=== PATIENT | male | born 1930 | race Caucasian/White ===

== ENCOUNTER 2017-02-18 08:51 | Day surgery (SDC) | payer OTHER, MEDICARE ==
[2017-02-16 10:32] VITALS: BMI 25.0
[2017-02-18] MEDS ORDERED: MIDAZOLAM HCL 2 MG/2 ML SINGLE DOSE VIAL ONE (10:12)
[2017-02-18 10:21] VITALS: TEMP 97.6
[2017-02-18] MEDS: CYCLOPENTOLATE 2% OPHTH SOLN 2 ML BOTTLE ONE ×3 (10:30→10:40)
[2017-02-18] MEDS: PHENYLEPHRINE 2.5% OPHTH SOLN 15 ML BOTTLE ONE ×3 (10:30→10:40)
[2017-02-18] MEDS: TROPICAMIDE 1% OPHTH SOLN 15 ML BOTTLE ONE ×3 (10:30→10:40)
[2017-02-18] MEDS: CIPROFLOXACIN 0.3% EYE DROPS 5 ML BOTTLE ONE ×3 (10:30→10:40)
[2017-02-18 12:15] VITALS: BP 144/72; PULSE 47
--- NOTE | 2017-02-18 12:31 | OP ---
DATE OF OPERATION: 02/18/2017 OPERATIVE PROCEDURE: Lens Phacoemulsification with Posterior Chamber Intraocular Lens Placement Left Eye PREOPERATIVE DIAGNOSIS: Visually Significant Cataract of Left Eye POSTOPERATIVE DIAGNOSIS: Visually Significant Cataract of Left Eye SURGEON: Kush Sierra M.D. ANESTHESIA: MAC ANESTHESIOLOGIST: PROCEDURE: The patient was brought to the operating room and placed under monitored anesthesia care by Anesthesia. A drop of Tetracaine was then placed over the left eye. The patient was then prepped and draped in the usual sterile manner. A speculum was then placed over the left eye. The eye was then well irrigated with copious amounts of BSS (balanced salt solution). The operating microscope was then moved into position. A paracentesis was performed using a 15 degree blade. At this point 0.5 mL of 1% preservative-free lidocaine was injected into the anterior chamber. Amvisc plus was then injected into the anterior chamber. A clear corneal incision was then formed using a 2.2 mm keratome. A capsulorrhexis was then performed in a continuous circular fashion beginning with a cystotome, completed with an Utratas forceps. Hydrodissection was then performed using BSS on a cannula. The phaco probe was then introduced through the corneal wound and the cataract was removed using the phaco chop technique. Approximately 3 seconds of absolute phaco time was used. The remaining cortex was then removed using irrigation and aspiration with an I/A probe. The capsule was then filled with regular Amvisc and the capsule was noted to be intact. A previously selected foldable posterior chamber intraocular lens was then injected into the capsule through the corneal wound using a lens injector. It was then dialed into position using a Sinskey hook. The Amvisc was then removed using irrigation and aspiration. Miostat was then injected through the paracentesis to constrict the pupil. The paracentesis and corneal wound were then hydrated and noted to be water tight. A drop of Maxitrol was then placed over the eye. The speculum was removed and clear shield was taped over the eye. The patient tolerated the procedure well and there were no surgical complications. The patient was asked to follow up in my office the next day. KUSH SIERRA M.D. STEPHIE/[id number]
== END 2017-02-18 12:25 | disposition home or self-care (01) ==
LOC: FASU 08:51
PROVIDERS: ATTEND Ophthalmology
PROC: 08RK3JZ Replacement of Left Lens with Synthetic Substitute, Percutaneous Approach (ICD-10-PCS; principal; 2017-02-18 11:13)
DX: H26.8 Other specified cataract (principal)

== ENCOUNTER 2019-02-20 09:28 | Emergency (ER) | payer OTHER, MEDICARE ==
[2019-02-20] MEDS ORDERED: SODIUM CHLORIDE 1,000 ML IV SCH (09:45)
[2019-02-20 09:49] VITALS: BMI 26.6
[2019-02-20 10:22] LABS: BASO % 0.8 % (0-2.0); EOS % 5.2 % (0-4.5); HEMATOCRIT 44.5 % (35.4-49); HEMOGLOBIN 14.8 GM/dl (11.7-16.9); LYMPH % 16.5 % (8-40); MCH 31.8 pg (25.7-33.7); MCHC 33.2 g/dl (32.0-35.9); MEAN CELL VOLUME 95.6 fl (80-96); MEAN PLT VOLUME 8.8 fl (7.5-11.1); MONO % 8.9 % (3.8-10.2); NEUT % 68.6 % (42.8-82.8); PLATELET COUNT 217 K/MM3 (134-434); RBC 4.66 M/mm3 (4.00-5.60); RDW 12.6 % (11.9-15.9); WHITE BLOOD COUNT 5.4 K/mm3 (4.0-10.8)
--- NOTE | 2019-02-20 10:23 | PDOC ---
History of Present Illness - General Chief Complaint: CVA/TIA Stated Complaint: STROKE History Source: Patient, Significant Other Exam Limitations: No Limitations - History of Present Illness Initial Comments: 02/20/19 10:18 88 yo male with h/o seizure disorder mild dementia here with new onset slurred speech and weakness. last normal on night prior . [place] see a nuerologist in [place] for memory does not take any blood thinners. today his noticed change to his speech and mild right sided facial droop. no f/c no trauma. no other complaints. did have a ct head 4 mo ago for persistant headaches. 02/20/19 10:26 tPA Exclusion Checklist 0-3hr - Time Elapsed Date last known well: 02/19/19 - Thrombolytic Therapy Candidate Is the patient eligible for Thrombolytic Therapy?: No - Exclusion Criteria 0-3hr SBP greater than 185 or DBP greater than 110mmHg despite tx: No Recent IC/spinal surgery,head trauma or stroke w/in last 3mo: No Hx of previous IC hemorrhage, IC neoplasm, AVM or aneurysm: No Active internal bleeding: Yes Blding diathesis(low plt ct, inc PTT,INR>1.7 or use of NOAC): No Symptoms suggest subarachnoid hemorrhage: No CT demonstrates multilobar infarct(>1/3 cerebral hemiphere): No Arterial puncture at noncompressible site in previous 7 days: No Blood glucose concentration less than 50mg/dL (2.7mmol/L): No - Relative Exclusion Criteria 0-3h : No Rapid improvement: No Recent acute AK (w/in previous 3 months): No Seizure at onset with postictal residual neuro impairments: No Major surgery or serious trauma w/in previous 14 days: No - Ineligibility reason(s) Reasons No tPA given: See reason(s) noted above (ICH on ct scan. ) NIH Stroke Scale - Last Known Well Date/Time & Onset Date Last Known Well: 02/19/19 Time Last Known Well: 22:00 - Initial Evaluation Level of consciousness: Alert Ask patient the month and their age: Answers both correctly Ask patient to open & close eyes; make fist and let go: Obeys both correctly Best gaze (horizontal eye movement): Normal Visual field testing: No visual field loss Facial paresis (Show teeth/raise eyebrows/close eyes tight): Minor paralysis ( flattened nasolabial fold, asymmetry on smiling) (right nasolabial fold flattening) Motor Function: Left Arm: Normal Motor Function: Right Arm: Normal (extends arm 90 (or 45) degrees for 10 seconds without drift Motor Function: Left Leg: Normal (extends leg 30 degrees for 5 seconds without drift) Motor Function: Right Leg: Drift Limb Ataxia: No ataxia Sensory(Use pinprick test arms,legs,trunk,face/side to side): Normal Best language (Describe picture, name items, read sentences): Mild to moderate aphasia Dysarthria (read several words): Mild to moderate slurring of words Extinction and Inattention: No abnormality - Total Score NIH Stroke Scale Score: 4 Past History - Past Medical History Allergies/Adverse Reactions: Allergies Allergy/AdvReac Type Severity Reaction Status Date / Time No Known Allergies Allergy Verified 02/18/17 10:29 Home Medications: Ambulatory Orders Budesonide/Formeterol Fumarate [SYMBICORT 160/4.5mcg -] 2 inh PO BID 01/24/15 Montelukast Na [Singulair -] 5 mg PO HS 01/24/15 levETIRAcetam [Keppra Xr -] 500 mg PO BID 01/24/15 Albuterol Sulfate [Proventil HFA Inhaler -] 1 - 2 inh PO QID PRN 09/03/15 Cholecalciferol (Vitamin D3) [Vitamin D3] 1,000 unit PO DAILY 09/03/15 Cyanocobalamin [Vitamin B12 -] 1,000 mcg PO DAILY 09/03/15 Docosahexanoic Acid/Epa [Fish Oil Softgel] 1 each PO DAILY 09/03/15 Anemia: No Asthma: Yes 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 3 MOS. AGO) Thyroid Disease: No - Surgical History Abdominal Surgery: Yes (sigmoidectomy 5 years ago) Appendectomy: No Cardiac Surgery: No Cholecystectomy: No Lung Surgery: No Neurologic Surgery: No Orthopedic Surgery: Yes (02/2015 RIGHT THR, LEFT THR 20 YRS AGO) - Suicide/Smoking/Psychosocial Hx Smoking History: Never smoked Have you smoked in the past 12 months: No Hx Alcohol Use: Yes Drug/Substance Use Hx: No Substance Use Type: Alcohol Hx Substance Use Treatment: No Review of Systems - Review of Systems Constitutional: No: Chills, Diaphoresis, Fever HEENTM: No: Eye Pain Respiratory: No: Cough, Orthopnea Cardiac (ROS): No: Chest Pain, Edema Neurological: Yes: Headache All Other Systems: Reviewed and Negative *Physical Exam - Vital Signs Last Vital Signs Temp Pulse Resp BP Pulse Ox 97.6 F 60 21 H 126/57 L 95 02/20/19 09:29 02/20/19 10:00 02/20/19 10:00 02/20/19 10:00 02/20/19 10:00 - Physical Exam Comments: 02/20/19 10:27 pt awake alert mild right nasolabial fold flatteing. lungs clear bilat heart rrr no mrg abd soft nt nd ext wwp . nuero mild right nasolabial fold flattening. speech slurred. 5/5 bilat upper ext. right leg mild weakness to flexion 4+/5, left 5/5. sensation intact bilat . speech slurred. disoriented to date. skin warm and dry. Heart Score/ECG Review #1 General ECG Interpretation: Normal Rate (65), Normal Intervals, No acute ischemic changes Compared to previous ECG there are: Other 02/20/19 10:53 paced rhtym. ED Treatment Course - LABORATORY CBC & Chemistry Diagram: 02/20/19 09:40 02/20/19 09:40 - RADIOLOGY Radiology Studies Ordered: Category Date Time Status HEAD CT (STROKE) [CT] Stat CT Scan 02/20/19 09:30 Completed Medical Decision Making - Medical Decision Making 02/20/19 10:29 88 yo male with h/o mild dementia, seizure here with new slurred speech and confusion, right facial droop. differentia ICH, cva, infection. plan labs ct head ekg. ct head wtih ICH internal capsule left IC. no midline shift. paged DR lam to service, and cell phone x 2. labs pending. bp normal. 126/57 02/20/19 10:48 case d/w dr pagan, recommend higher level of care in event of extension of bleed. will transfer to [facility]. d/w Dr Armstrong on stroke team at [facility] via transfer center, and DR Zuñiga in [place], pt to be transferred to ED there. pt accepted for transfer . updated family at bedside. *DC/Admit/Observation/Transfer Diagnosis at time of Disposition: Hemorrhagic cerebrovascular accident (CVA) - Discharge Dispostion Disposition: TRANSFER ACUTE CARE/OTHER HOSP Condition at time of disposition: Good - Referrals Referrals: Laura Harper MD [Primary Care Provider] - - Patient Instructions - Post Discharge Activity
[2019-02-20 10:30] LABS: INR 1.18 (0.82-1.09); PROTHROMBIN TIME (PATIENT) 13.2 SEC (10.2-13.0)
[2019-02-20 10:42] LABS: ALBUMIN 3.8 g/dl (3.4-5.0); BILIRUBIN,TOTAL 0.8 mg/dl (0.2-1); CREATININE 0.8 mg/dl (0.55-1.3)
[2019-02-20 11:04] VITALS: BP 142/65
[2019-02-20 11:18] VITALS: PULSE 55; TEMP 98.1
--- NOTE | 2019-02-21 00:11 | EKG ---
Test Reason : Blood Pressure : / mmHG Vent. Rate : 065 BPM Atrial Rate : 065 BPM P-R Int : 224 ms QRS Dur : 100 ms QT Int : 434 ms P-R-T Axes : 070 -42 056 degrees QTc Int : 451 ms POOR DATA QUALITY, INTERPRETATION MAY BE ADVERSELY AFFECTED SINUS RHYTHM WITH 1ST DEGREE A-V BLOCK LEFT AXIS DEVIATION MINIMAL VOLTAGE CRITERIA FOR LVH, MAY BE NORMAL VARIANT ABNORMAL ECG WHEN COMPARED WITH ECG OF 09-JUL-2006 10:29, [place] INTERVAL HAS INCREASED QRS DURATION HAS INCREASED QT HAS LENGTHENED Confirmed by MD Juan, Triston ([id number]) on 02/21/2019 12:11:03 AM Referred By: MD WONG Confirmed By:Triston Martinez MD
== END 2019-02-20 11:28 | disposition short-term general hospital (02) ==
LOC: FER 09:28
DX: I61.9 Nontraumatic intracerebral hemorrhage, unspecified (principal); F03.90 Unspecified dementia, unspecified severity, without behavioral disturbance, psychotic disturbance, mood disturbance, and anxiety; I10 Essential (primary) hypertension; J44.9 Chronic obstructive pulmonary disease, unspecified; Z85.46 Personal history of malignant neoplasm of prostate; G40.909 Epilepsy, unspecified, not intractable, without status epilepticus
CPT/HCPCS: 36415; 70450-TC; 80053; 82465; 82550; 83718; 83721; 84478; 84484; 85025; 85610; 86850; 86900; 86901; 93005; 99285-25